=== PATIENT | female | born 1965 | race Caucasian/White ===

== ENCOUNTER 2022-03-14 16:58 | Emergency (ER) | payer OTHER ==
[~2022-03-14] VITALS: Ht 154.9 cm; Wt 59.0 kg
== END 2022-03-15 05:42 | disposition designated cancer center or children's hospital (05) ==
LOC: ER 16:58
DX: S22.42XA Multiple fractures of ribs, left side, initial encounter for closed fracture (principal); W18.2XXA Fall in (into) shower or empty bathtub, initial encounter; Y93.E1 Activity, personal bathing and showering; Y92.012 Bathroom of single-family (private) house as the place of occurrence of the external cause; Y99.9 Unspecified external cause status